=== PATIENT | female | born 1995 ===

== ENCOUNTER 2021-12-31 03:19 | Inpatient (IN) | payer OTHER ==
[2021-12-31] MEDS ORDERED: Sodium Chloride 0.9% 2.5 ML Syringe FLUSH PRN (03:31)
[2021-12-31] MEDS ORDERED: Butorphanol 1 MG/ML SDV IVPUSH PRN (03:31)
[2021-12-31] MEDS ORDERED: Water For Irrigation,Sterile 1,000 ML Container IRR PRN (03:31)
[2021-12-31] MEDS ORDERED: Methylergonovine 0.2 MG/1 ML Amp IM PRN (03:31)
[2021-12-31] MEDS ORDERED: Sodium Chloride 0.9% 20 ML SDV IV PRN (03:31)
[2021-12-31] MEDS ORDERED: Misoprostol 200 MCG Tab PO PRN (03:31)
[2021-12-31] MEDS ORDERED: Tranexamic Acid 1,000 MG in Sodium Chloride 0.9% 100 ML IV PRN (03:31)
[2021-12-31] MEDS ORDERED: Sodium Chloride 0.9% 10 ML Syringe FLUSH PRN (03:31)
[2021-12-31] MEDS ORDERED: Lidocaine 1% 50 ML MDV INJECT PRN (03:31)
[2021-12-31] MEDS ORDERED: Nalbuphine 10 MG/1 ML Vial IVPUSH PRN ×2 (03:31→15:03)
[2021-12-31] MEDS ORDERED: Ondansetron 4 MG/2 ML SDV IVPUSH PRN ×4 (03:31→15:36)
[2021-12-31] MEDS ORDERED: Carboprost Tromethamine 250 MCG/1 ML Amp IM PRN (03:31)
[2021-12-31] MEDS ORDERED: Oxytocin/0.9 % Sodium Chloride 30 UNIT/500 ML BAG IV SCH ×2 (03:45→15:45)
[2021-12-31] MEDS: Lactated Ringers 1,000 ML IV SCH ×4 (05:18→13:10)
[2021-12-31] MEDS ORDERED: Ropivacaine 100 ML ONE ×2 (07:10→12:55)
[2021-12-31] MEDS ORDERED: ePHEDrine 50 MG/ML SDV IVPUSH PRN ×3 (07:40→13:10)
[2021-12-31] MEDS ORDERED: Ropivacaine 200 MG in Premix Bag 1 BAG EPIDUR SCH (13:15)
[2021-12-31] MEDS ORDERED: Bupivacaine 0.5% 10 ML SDV ONE ×2 (14:36)
[2021-12-31] MEDS ORDERED: ceFAZolin 1 GM Vial ONE ×2 (14:53)
[2021-12-31] MEDS ORDERED: Oxytocin 10 Units/1 ML SDV ONE (14:53)
[2021-12-31] MEDS ORDERED: Ondansetron 4 MG/2 ML SDV ONE (14:53)
[2021-12-31] MEDS ORDERED: Ropivacaine 0.5% 5 MG/ML 30 ML SDV ONE (14:53)
[2021-12-31] MEDS ORDERED: Morphine 2 MG/ML SYRINGE IVPUSH PRN (15:03)
[2021-12-31] MEDS ORDERED: Albuterol 0.083% 2.5 MG/3 ML Neb Soln NEB PRN (15:03)
[2021-12-31] MEDS ORDERED: Acetaminophen/oxyCODONE 325-5 MG Tab PO PRN ×3 (15:03→15:36)
[2021-12-31] MEDS ORDERED: Metoclopramide 10 MG/2 ML SDV IVPUSH PRN (15:03)
[2021-12-31] MEDS ORDERED: Naloxone 0.4 MG/ML SDV IVPUSH PRN (15:03)
[2021-12-31] MEDS ORDERED: HYDROmorphone 1 MG/ML Syringe IVPUSH PRN (15:03)
[2021-12-31] MEDS ORDERED: diphenhydrAMINE 50 MG/ML SDV IVPUSH PRN ×2 (15:03→15:36)
[2021-12-31] MEDS ORDERED: fentaNYL 100 MCG/2 ML SDV IVPUSH PRN ×2 (15:03)
[2021-12-31] MEDS ORDERED: Morphine PF 10 MG/10 ML SDV ONE (15:10)
[2021-12-31] MEDS ORDERED: Ketorolac 30 MG/ML SDV ONE (15:14)
[2021-12-31] MEDS ORDERED: Lanolin 100% Cream 7 GM Tube TOP PRN (15:36)
[2021-12-31] MEDS ORDERED: Bisacodyl 10 MG Supp RECTAL PRN (15:36)
[2021-12-31] MEDS ORDERED: Albuterol 8 GM Inhaler INH PRN (15:39)
[2021-12-31] MEDS ORDERED: Lactated Ringers 1,000 ML IV SCH (15:45)
[2021-12-31] MEDS: Ketorolac 30 MG/ML SDV IVPUSH PRN (21:56)
[2021-12-31] MEDS: Docusate Sodium 100 MG Cap PO SCH (21:56)
[2022-01-01] MEDS: Ketorolac 30 MG/ML SDV IVPUSH PRN ×3 (03:58→17:32)
[2022-01-01] MEDS: Docusate Sodium 100 MG Cap PO SCH ×2 (10:23→21:15)
[2022-01-02] MEDS: Ibuprofen 800 MG Tab PO PRN ×2 (04:48→15:43)
[2022-01-02] MEDS: Docusate Sodium 100 MG Cap PO SCH (09:56)
== END 2022-01-02 18:50 | disposition home or self-care (01) | DRG 788 ==
LOC: MW.OBCHECK 03:19 → MW.OB 03:22 → MW.OBCHECK 03:33 → OBSVTOIN 15:38 → MW.OB 15:39
PROVIDERS: ADMIT Obstetrics & Gynecology; ATTEND Obstetrics & Gynecology
PROC: 10D00Z1 Extraction of Products of Conception, Low, Open Approach (ICD-10-PCS; principal; 2021-12-31)
PROC: 3E0R3BZ Introduction of Anesthetic Agent into Spinal Canal, Percutaneous Approach (ICD-10-PCS; 2021-12-31)
PROC: 00HU33Z Insertion of Infusion Device into Spinal Canal, Percutaneous Approach (ICD-10-PCS; 2021-12-31)
DX: O48.0 Post-term pregnancy (principal); Z37.0 Single live birth; Z20.822 Contact with and (suspected) exposure to COVID-19; O76 Abnormality in fetal heart rate and rhythm complicating labor and delivery; O99.52 Diseases of the respiratory system complicating childbirth; J45.909 Unspecified asthma, uncomplicated; Z3A.40 40 weeks gestation of pregnancy
CPT/HCPCS: 01967; 36415; 51702; 59025; 64488; 82803; 85014; 85018; 85027; 86592; 86850; 86900; 86901; A9270-GY; J0690; J1200; J1885; J2274; J2405; J2590; J2795; J3490; J7120; U0002